=== PATIENT | male | born 1955 ===

== ENCOUNTER 2016-10-04 09:11 | Emergency (ER) | payer OTHER ==
[2016-10-04 10:07] VITALS: BP 172/96
--- NOTE | 2016-10-04 10:21 | UC ---
Ear Complaint HPI - HPI Summary HPI Summary: Patient has had left ear pain for the past 3-4 days. he did flush it 2 days ago and removed some ear wax - History of Current Complaint Chief Complaint: UCEar Stated Complaint: LEFT EAR PAIN Time Seen by Provider: 10/04/16 10:05 Hx Obtained From: Patient Onset/Duration: Sudden Onset, Lasting Days Severity Initially: Mild Severity Currently: Moderate Associated Signs/Symptoms: Positive: Hearing Loss, Swelling @ - tragus, URI Symptoms - Allergies/Home Medications Allergies/Adverse Reactions: Allergies Allergy/AdvReac Type Severity Reaction Status Date / Time No Known Allergies Allergy Verified 10/04/16 09:36 Home Medications: Home Medications Ibuprofen TAB* [Advil TAB*] 200 mg PO Q6H PRN 10/04/16 [History Confirmed ] PMH/Surg Hx/FS Hx/Imm Hx Previously Healthy: Yes - Surgical History Surgical History: None - Family History Known Family History: Positive: Hypertension - Social History Alcohol Use: Rare Substance Use Type: None Smoking Status (MU): Never Smoked Tobacco Review of Systems Constitutional: Negative Skin: Negative Eyes: Negative ENT: Ear Ache, Nasal Discharge Respiratory: Negative Cardiovascular: Negative Gastrointestinal: Negative Genitourinary: Negative Motor: Negative Neurovascular: Negative Musculoskeletal: Negative Neurological: Negative Psychological: Negative All Other Systems Reviewed And Are Negative: Yes Physical Exam Triage Information Reviewed: Yes Appearance: Well-Appearing, Pain Distress, Obese Vital Signs: Initial Vital Signs Temp 97.5 F 10/04/16 09:36 Pulse 83 10/04/16 09:36 Resp 18 10/04/16 09:36 BP 172/96 10/04/16 09:36 Pulse Ox 99 10/04/16 09:36 Vital Signs Reviewed: Yes Eye Exam: Normal Eyes: Positive: Conjunctiva Clear ENT: Positive: Hearing grossly normal, Pharynx normal, TM dull, TM red, Other: - tragus is red and painful to touch Dental Exam: Normal Neck exam: Normal Respiratory Exam: Normal Respiratory: Positive: Chest non-tender, Lungs clear, Normal breath sounds Cardiovascular Exam: Normal Cardiovascular: Positive: RRR, No Murmur, Pulses Normal Abdominal Exam: Normal Bowel Sounds: Positive: Present Musculoskeletal Exam: Normal Neurological Exam: Normal Psychological Exam: Normal Skin Exam: Normal Ear Complaint Course/Dx - Course Course Of Treatment: hx obtained, exam performed ,meds reviewed, treated for internal and external ear infection. Local PCP lift given, recommend follow up if no relief in 48 hours. also follow up on BP - Differential Dx/Diagnosis Differential Diagnosis/HQI/PQRI: Cerumen Impaction, Otitis Externa, Otitis Media Provider Diagnoses: left otitis externa and media. hypertension Discharge - Discharge Plan Condition: Stable Disposition: HOME Prescriptions: Amoxicillin/Clavulanate TAB* [Augmentin TAB 875*] 875 mg PO BID #14 tab Ciproflox/Dexameth OTIC.SUSP* [Ciprodex OTIC.SUSP*] 4 drop .SEE ORDER BID #1 btl Patient Education Materials: Otitis Externa (ED), Otitis Media (ED) Additional Instructions: 1. take the medication as prescribed. 2. Follow up if no relief in 48 hours, or if you develop any more pain around the ear, fever, redness or swelling. 3. Monitor your BP and follow up
== END 2016-10-04 10:29 | disposition home or self-care (01) ==
LOC: UCCORT 09:11
DX: H60.92 Unspecified otitis externa, left ear (principal); H66.92 Otitis media, unspecified, left ear; I10 Essential (primary) hypertension; E66.9 Obesity, unspecified
CPT/HCPCS: 99201; G0463